=== PATIENT | male | born 1965 ===

== ENCOUNTER 2016-08-28 06:53 | Day surgery (SDC) | payer OTHER ==
[2014-11-25 10:12] VITALS: BMI 26.2
[2016-08-28] MEDS ORDERED: Propofol 10 mg/ml Inj (20 ML) ONE (08:16)
--- NOTE | 2016-08-28 08:17 | CP.SDSHP ---
Same Day Surgery H & P - History Proposed Procedure: COLONSCOPY Pre-Op Diagnosis: SEE NOTES - Previous Medical/Surgical History Cardiac: Hypertension Neuro: Headaches, Backaches Misc: Other Pain: 4.Moderate Pain - Allergies Allergies: Allergies MDX Iodine [Iodine] Allergy (Verified 11/25/14 10:13) ITCHING MDX Shellfish [Shellfish] Allergy (Verified 11/25/14 10:13) SWELLING - Physical Exam General Appearance: N Vital Signs: Vital Signs 08/28/16 07:52 Temperature 98 F Pulse Rate 65 Respiratory 19 Rate Blood Pressure 114/63 O2 Sat by Pulse 95 Oximetry Mental Status: Alert & Oriented x3 Neuro: WNL Heart: Other Lungs: WNL GI: Other - {Optional Preform as Required} Breast: WNL Abdomen: Other Rectal: Other Integument: WNL : WNL Ortho: Other ENT: WNL - Impression Pt. Evaluated Today:Candidate for Anesthesia & Procedure: Yes - Date & Time Time: 08:18 Short Stay Discharge - Short Stay Discharge Admitting Diagnosis/Reason for Visit: RECTAL BLEEDING Disposition: HOME/ ROUTINE
[2016-08-28] MEDS ORDERED: Pantoprazole 40 mg EC Tab PO STA (08:19)
[2016-08-28] MEDS ORDERED: Belladonna-Phenobarbital PO STA (08:19)
[2016-08-28 09:06] VITALS: TEMP 98.4
[2016-08-28 09:30] VITALS: BP 118/73; PULSE 59; RESP 20; O2SAT 99
[2016-08-28] MEDS ORDERED: Belladonna-Phenobarbital PO ONE (09:30)
[2016-08-28] MEDS ORDERED: Pantoprazole 40 mg EC Tab PO ONE (09:30)
== END 2016-08-28 09:45 | disposition home or self-care (01) ==
LOC: C.ENDO 06:53
PROVIDERS: ATTEND Specialist
DX: K57.90 Diverticulosis of intestine, part unspecified, without perforation or abscess without bleeding (principal); D12.3 Benign neoplasm of transverse colon; K64.8 Other hemorrhoids
CPT/HCPCS: 45388; 88305; J2704

== ENCOUNTER 2016-12-26 06:25 | Day surgery (SDC) | payer OTHER ==
[2014-11-25 10:12] VITALS: BMI 26.2
[2016-12-26 10:26] VITALS: TEMP 98.6
[2016-12-26 10:57] VITALS: BP 101/66; PULSE 60; RESP 15; O2SAT 96
== END 2016-12-26 10:56 | disposition home or self-care (01) ==
LOC: C.ENDO 06:25
PROVIDERS: ATTEND Internal Medicine Gastroenterology
DX: K21.9 Gastro-esophageal reflux disease without esophagitis (principal); K29.60 Other gastritis without bleeding; K70.30 Alcoholic cirrhosis of liver without ascites
CPT/HCPCS: 43239; 88305; J2001; J2704; J3010